=== PATIENT | male | born 1960 | race Hispanic/Latino ===

== ENCOUNTER 2018-02-25 17:46 | Inpatient (IN) | payer MEDICARE ==
[~2018-02-25] VITALS: Ht 175.3 cm; Wt 131.6 kg
[2018-02-25 18:53] LABS: BASOPHILS % 0.3 % (0.0-1.0); EOSINOPHILS # (AUTO) 0.2 (0.0-0.4); EOSINOPHILS % 1.8 % (0.0-6.0); HEMATOCRIT 40.2 % (38.2-49.6); HEMOGLOBIN 13.6 g/dL (14.0-18.0); LYMPHOCYTES # (AUTO) 2.7 (1.0-3.2); LYMPHOCYTES % 21.8 % (18.0-39.1); MEAN CORPUSCULAR HEMOGLOBIN 29.4 pg (28-32); MEAN CORPUSCULAR HGB CONC 33.8 g/dL (31-35); MONOCYTES % 8.2 % (4.4-11.3); NEUTROPHILS # (AUTO) 8.2 (2.1-6.9); NEUTROPHILS % 67.5 % (38.7-80.0); PLATELET COUNT 255 x10e3/uL (140-360); RED BLOOD COUNT 4.62 x10e6/uL (4.3-5.7); RED CELL DISTRIBUTION WIDTH 14.1 % (11.7-14.4)
[2018-02-25 19:08] LABS: CALCIUM 9.4 mg/dL (8.4-10.2); CREATININE, SERUM 1.24 mg/dL (0.72-1.25)
--- NOTE | 2018-02-25 19:30 | Diagnostic Imaging Report ---
FOOT LEFT COMPLETE - 3 views HISTORY: Pain. Evaluate for fourth metatarsal osteomyelitis COMPARISON: None available. FINDINGS: Bones: Cortical irregularity at the base of the fourth proximal phalanx with osteopenia. Questionable involvement of the fourth metatarsal head. Osseous alignment is within normal limits. Joints: Mild to moderate degenerative changes in the DLP and PIP joints. Moderate degenerative changes in the interphalangeal joint of the first digit and first MTP joint. Soft tissues: Diffuse soft tissue swelling. IMPRESSION: Cortical irregularity at the base of the fourth proximal phalanx with osteopenia, worrisome for osteomyelitis. Possible involvement of the fourth metatarsal head. Signed by: Dr. Daron Guevara M.D. on 02/25/2018 7:27 PM
[2018-02-25] MEDS ORDERED: AMLODIPINE BESYL5 MG PO (19:59)
[2018-02-25] MEDS ORDERED: HYDRALAZINE HCL25 MG PO (19:59)
[2018-02-25] MEDS ORDERED: DEXTROSE 50% SYRINGE 50 ML IV PRN ×2 (20:00)
[2018-02-25] MEDS ORDERED: ATORVASTATIN CA20 MG PO (20:00)
[2018-02-25] MEDS ORDERED: SODIUM CHLORIDE FLUSH 10 ML SYR INJ PRN (20:00)
[2018-02-25] MEDS ORDERED: ONDANSETRON HCL INJ 2 MG/ML VIAL IV PRN (20:00)
[2018-02-25] MEDS ORDERED: TERBINAFINE HC250 MG PO (20:00)
[2018-02-25] MEDS ORDERED: GABAPENTIN300 MG PO (20:02)
[2018-02-25] MEDS ORDERED: LASIX20 MG PO (20:03)
[2018-02-25] MEDS ORDERED: PROBENECID500 MG PO (20:03)
[2018-02-25] MEDS ORDERED: LISINOPRIL10 MG PO (20:04)
[2018-02-25] MEDS ORDERED: ALLOPURINOL100 MG PO (20:04)
[2018-02-25] MEDS ORDERED: TIZANIDINE HCL4 MG PO (20:05)
[2018-02-25] MEDS ORDERED: ACETAMINOPHEN 325 MG TAB PO PRN (20:15)
[2018-02-25] MEDS ORDERED: VANCOMYCIN 1GM/NS 250 ML 250 ML IV ONE (20:30)
--- NOTE | 2018-02-25 20:46 | History and Physical ---
HISTORY OF PRESENT ILLNESS: Patient is an 57-year-old male with past medical history positive for diabetes and hypertension. Came here with an infected left foot. REVIEW OF SYSTEMS: CARDIOVASCULAR: No chest pain or palpitations. RESPIRATORY: No shortness of breath. No cough. GASTROINTESTINAL: No nausea. No vomiting or diarrhea. GENITOURINARY: No frequency and no dysuria. ALLERGIES: NOT ALLERGIC TO ANY MEDICATIONS. SOCIAL HISTORY: He smokes but he does not drink alcohol. PAST MEDICAL HISTORY: Positive for diabetes, hypertension and diabetic neuropathy. PHYSICAL EXAMINATION: HEART: Regular rhythm. No murmur. No extra sounds. LUNGS: Clear bilaterally. ABDOMEN: Soft. EXTREMITIES: Show the open wound on the plantar aspect of the left foot with yellowish coloration. LABORATORY DATA: On the blood work we have a BMP with a sodium 138, potassium 4.0, chloride 102. CO2 28. BUN 21, creatinine 1.24, glucose 86. Calcium 9.4. On the CBC white blood count 12.18, hemoglobin 13.6, hematocrit 40.2, platelet count 255,000. We also have an x-ray of the left foot which showed cortical irregularly with elevation of the 4th proximal phalanx with osteopenia osteomyelitis possibly involving the 4th metatarsal head. FINAL IMPRESSION: 1. Left foot wound infection with osteomyelitis. 2. Diabetes mellitus type 2. 3. History of hypertension. 4. Obesity. PLAN OF TREATMENT: Going to continue Zosyn 3.375 grams IV piggyback once a day. Vancomycin 1 gram IV piggyback twice a day. Consult Dr. Lopez for infectious disease and Dr. Garcia for napkin band wrapper. Continue the home medications. Continue diabetic diet. Continue monitoring blood sugar a.c. and nightly. Job#: [id number]
[2018-02-25] MEDS ORDERED: ATORVASTATIN 20 MG TAB PO SCH (21:00)
[2018-02-25] MEDS ORDERED: INSULIN REGULAR, HUMAN 100 UNIT/1 ML 3ML VIAL SQ SCH (21:00)
[2018-02-25] MEDS: INSULIN REGULAR, HUMAN 100 UNIT/1 ML 3ML VIAL SQ SCH (21:57)
[2018-02-25] MEDS: INSULIN DETEMIR 100 UNIT/ML PEN SQ SCH (21:58)
[2018-02-25] MEDS: HYDRALAZINE HCL 25 MG TAB PO SCH (21:58)
[2018-02-25] MEDS: ATORVASTATIN 40 MG TAB PO SCH (21:59)
[2018-02-25] MEDS: PROBENECID 500 MG TABLET PO SCH (22:16)
[2018-02-25] MEDS: GABAPENTIN 300 MG CAP PO SCH (22:17)
[2018-02-25] MEDS: PIPER-TAZ 3.375 GM 50 ML IV SCH (22:18)
[2018-02-25 22:25] VITALS: BP 186/99
[2018-02-25] MEDS: MORPHINE SULFATE 2 MG/ML SYR IV PRN (23:12)
[2018-02-26] VITALS (9 sets, daily range): BP systolic 127–187; BP diastolic 67–96
[2018-02-26] MEDS: LABETALOL HCL 5 MG/ML 20ML VIAL IV PRN (04:42)
[2018-02-26] MEDS: GABAPENTIN 300 MG CAP PO SCH ×3 (05:31→21:00)
[2018-02-26] MEDS: PIPER-TAZ 3.375 GM 50 ML IV SCH ×3 (05:31→21:00)
[2018-02-26] MEDS: PROBENECID 500 MG TABLET PO SCH ×3 (05:31→21:00)
[2018-02-26 06:08] LABS: BASOPHILS # (AUTO) 0.1 (0.0-0.1); BASOPHILS % 0.5 % (0.0-1.0); EOSINOPHILS # (AUTO) 0.2 (0.0-0.4); EOSINOPHILS % 2.2 % (0.0-6.0); HEMATOCRIT 37.7 % (38.2-49.6); HEMOGLOBIN 12.3 g/dL (14.0-18.0); LYMPHOCYTES # (AUTO) 2.8 (1.0-3.2); LYMPHOCYTES % 27.1 % (18.0-39.1); MEAN CORPUSCULAR HEMOGLOBIN 29.4 pg (28-32); MEAN CORPUSCULAR HGB CONC 32.6 g/dL (31-35); MONOCYTES # (AUTO) 0.8 (0.2-0.8); MONOCYTES % 7.9 % (4.4-11.3); NEUTROPHILS # (AUTO) 6.4 (2.1-6.9); NEUTROPHILS % 61.9 % (38.7-80.0); PLATELET COUNT 242 x10e3/uL (140-360); RED BLOOD COUNT 4.19 x10e6/uL (4.3-5.7); RED CELL DISTRIBUTION WIDTH 14.2 % (11.7-14.4)
[2018-02-26 06:32] LABS: ALBUMIN 2.6 g/dL (3.5-5.0); ALBUMIN/GLOBULIN RATIO 0.6 (0.8-2.0); ANION GAP 11.8 mmol/L (8-16); CALCIUM 8.9 mg/dL (8.4-10.2); CREATININE, SERUM 1.29 mg/dL (0.72-1.25); POTASSIUM 3.8 mmol/L (3.5-5.1)
[2018-02-26] MEDS: INSULIN LISPRO 100 UNIT/1 ML 3ML VIAL SQ SCH ×3 (07:30→18:01)
[2018-02-26] MEDS: INSULIN REGULAR, HUMAN 100 UNIT/1 ML 3ML VIAL SQ SCH ×4 (07:30→21:10)
--- NOTE | 2018-02-26 08:07 | History and Physical ---
PRIMARY CARE PHYSICIAN: Dr. Tse CHIEF COMPLAINT: Left foot nonhealing ulcer, failed outpatient antibiotic therapy. HISTORY OF PRESENT ILLNESS: This is a 57-year-old man with a history of diabetes mellitus, type 2, now developing left foot sole ulcer since August when he had trauma to that foot, which has been nonhealing. He has been receiving antibiotics, but the ulcer persists. Therefore, he came to the hospital for management. He admits to some leg edema. Denies any chest pain. PAST MEDICAL HISTORY: Diabetes mellitus, type 2, stroke in 2007 without residual weakness, myocardial infarction without stent, appendicitis, status post appendectomy. PAST SURGICAL HISTORY: Appendectomy, L1-L2 back surgery. ALLERGIES: PER ELECTRONIC MEDICAL RECORD. FAMILY HISTORY/SOCIAL HISTORY: Patient is . He has 3 children. No alcohol or illicits. He smokes occasionally intermittently. MEDICATIONS: Per electronic medical record. REVIEW OF SYSTEMS: Denies any dizziness, chest pain, shortness of breath, fever, chills, nausea, vomiting, diarrhea, blurred vision. Denies any back pain. PHYSICAL EXAMINATION VITAL SIGNS: Have been reviewed. GENERAL: A tired-appearing man resting in bed. HEENT: Anicteric. Pupils respond to light. No oral lesions. CARDIOVASCULAR: Normal S1 and S2. LUNGS: Good breath sounds. ABDOMEN: Soft, nontender and nondistended. EXTREMITIES: He has 1+ edema bilateral legs. He has an ulcer, small to 0.5-inch in diameter ulcer on the foot sole of the left foot closer to the 5th digit on the foot sole plantar surface. No bleeding. It is a shallow ulcer. No swelling or erythema. Mild induration surrounding. No fluctuance. SKIN: Dry. PSYCHIATRIC: Flat affect. NEUROLOGIC: Alert and oriented times 3. Moving all extremities. LABS: Reviewed. MEDICATIONS: Reviewed. ASSESSMENT: This is a 57-year-old man with: 1. Left foot diabetic ulcer. 2. Acute kidney injury. 3. Diabetes mellitus, type 2. 4. Morbid obesity. 5. Hypertension. 6. Normocytic anemia. 7. Hyperlipidemia. 8. Gout. 9. Diabetic neuropathy. 10. Peripheral edema. PLAN 1. Continue IV Zosyn. Discontinue vancomycin due to acute kidney injury. Start IV clindamycin. 2. Obtain hemoglobin A1c and lipid panel. 3. Obtain BNP in the setting of peripheral edema. 4. The patient is already on diuretics with Lasix 20 mg daily. Will continue Lasix and recheck his renal function later today. 5. Antihypertensive medications. 6. Continue statin. 7. Offloading needed. 8. X-ray of the foot for possible osteomyelitis. Will obtain an MRI to further evaluate the chronic nonhealing ulcer that has failed outpatient antibiotic therapy. 9. Use heparin and Pepcid. 10. Disposition. Follow up results. Consult duplex trimmer for caloric restriction. Await diabetic diet in a patient who is morbidly obese. Job#: [id number] RI
[2018-02-26] MEDS ORDERED: LISINOPRIL 10 MG TAB PO SCH (09:00)
[2018-02-26] MEDS: HYDRALAZINE HCL 25 MG TAB PO SCH ×3 (09:50→21:00)
[2018-02-26] MEDS: LISINOPRIL 20 MG TAB PO SCH (09:50)
[2018-02-26] MEDS: TERBINAFINE 250 MG TAB PO SCH (09:50)
[2018-02-26] MEDS: ALLOPURINOL 100 MG TAB PO SCH (09:50)
[2018-02-26] MEDS: FUROSEMIDE 20 MG TAB PO SCH (09:50)
[2018-02-26] MEDS: HEPARIN SOD (PORCINE) 5,000 UNIT/ML VIAL SC SCH ×2 (09:50→21:10)
[2018-02-26] MEDS: TIZANIDINE HCL 4 MG TAB PO SCH ×2 (09:50→17:36)
[2018-02-26] MEDS: AMLODIPINE BESYLATE 5 MG TAB PO SCH (09:50)
--- NOTE | 2018-02-26 10:08 | Consultation ---
DATE OF CONSULTATION: February 26, 2018 REASON FOR CONSULTATION: Ulceration to the left foot with the patient being diabetic. HISTORY OF PRESENT ILLNESS: This is a pleasant, 57-year-old male with a history of insulin-dependent diabetes, hypertension, hypercholesterolemia. He has had an ulcer for more than 2 months to the left lower extremity. He started having some swelling to the left lower extremity. He is denying history of fever, chills, nausea or vomiting. He is currently on IV Zosyn and vancomycin. ALLERGIES: PATIENT DENIES. CURRENT MEDICATIONS: Noted on the list in the chart including IV medications/Zosyn and vancomycin. PAST SURGICAL HISTORY: Remarkable for appendectomy and 2 back surgeries. SOCIAL HISTORY: Smokes a pack every month for 20+ years. Does not do any recreational drug use or alcohol drinking. He is and has 3 kids. FAMILY HISTORY: Remarkable for diabetes. ALLERGIES: PATIENT DENIES. VITALS: Afebrile, pulse rate 64, respirations 20, blood pressure 186/90, O2 saturation 94%. LABS: Noted. Has white blood cell count dropping from 12.1 to 10.33, hemoglobin 12.3, hematocrit 37.7 with platelet count of 242. PODIATRIC PHYSICAL EXAMINATION VASCULAR: Pedal pulses, both the dorsalis pedis and posterior tibial arteries, are palpable. CFT to all toes less than 3 seconds. NEUROLOGICAL: Some loss of protective sensation when utilizing [place]-Shalini 5.07 monofilament wire. MUSCULOSKELETAL: Muscle mass is asymmetrical. Some swelling noted to the left lower extremity compared to the right. DERMATOLOGIC: Grade 2, possibly 3, ulceration on plantar aspect, left foot, measuring 2 to 2.5 cm in diameter, some necrosis noted. No bone or tendon exposed. X RAYS: Reviewed. No gas in the tissue or osteomyelitic changes at this time. ASSESSMENT: Grade 2/3 ulceration, left foot. Diabetic neuropathy with cellulitis. PLAN: Will continue IV antibiotics. Will start Santyl followed by dilute wet-to-dry Betadine. Ulceration will be debrided sometime next week and we will see how he responds to Santyl and conservative care. Job#: [id number]
[2018-02-26] MEDS: MORPHINE SULFATE 2 MG/ML SYR IV PRN (11:00)
[2018-02-26] MEDS ORDERED: CLINDAMYCIN 300MG 50 ML IV SCH (14:00)
[2018-02-26] MEDS ORDERED: SODIUM CHLORIDE 0.9% 250ML 250 ML ONE (14:27)
[2018-02-26 17:13] LABS: CALCIUM 8.6 mg/dL (8.4-10.2); CREATININE, SERUM 1.44 mg/dL (0.72-1.25)
[2018-02-26] MEDS: ENOXAPARIN SOD INJ 40 MG/0.4 ML SYR SC SCH (17:36)
[2018-02-26] MEDS: ATORVASTATIN 40 MG TAB PO SCH (21:00)
[2018-02-26] MEDS ORDERED: VANCOMYCIN 1GM/NS 250 ML 250 ML IV SCH (21:00)
[2018-02-26] MEDS: INSULIN DETEMIR 100 UNIT/ML PEN SQ SCH (21:10)
[2018-02-27 00:45] VITALS: BP 159/83
[2018-02-27 05:40] VITALS: BP 122/99
[2018-02-27] MEDS: PROBENECID 500 MG TABLET PO SCH ×3 (06:13→20:24)
[2018-02-27] MEDS: GABAPENTIN 300 MG CAP PO SCH ×3 (06:13→20:24)
[2018-02-27] MEDS: PIPER-TAZ 3.375 GM 50 ML IV SCH ×3 (06:13→23:05)
[2018-02-27] MEDS: LISINOPRIL 20 MG TAB PO SCH (07:40)
[2018-02-27] MEDS: FUROSEMIDE 20 MG TAB PO SCH (07:40)
[2018-02-27 08:00] VITALS: BP 145/76
[2018-02-27] MEDS: TIZANIDINE HCL 4 MG TAB PO SCH ×2 (08:03→17:10)
[2018-02-27] MEDS: AMLODIPINE BESYLATE 5 MG TAB PO SCH (08:03)
[2018-02-27] MEDS: HYDRALAZINE HCL 25 MG TAB PO SCH ×3 (08:03→20:23)
[2018-02-27] MEDS: ALLOPURINOL 100 MG TAB PO SCH (08:03)
[2018-02-27] MEDS: TERBINAFINE 250 MG TAB PO SCH (08:03)
[2018-02-27 08:35] LABS: ANION GAP 12.3 mmol/L (8-16); CALCIUM 8.8 mg/dL (8.4-10.2); CREATININE, SERUM 1.43 mg/dL (0.72-1.25); POTASSIUM 4.3 mmol/L (3.5-5.1)
[2018-02-27] MEDS: INSULIN LISPRO 100 UNIT/1 ML 3ML VIAL SQ SCH ×3 (08:36→17:11)
[2018-02-27] MEDS: COLLAGENASE 5 GM TUBE TOP SCH (08:37)
[2018-02-27] MEDS: HEPARIN SOD (PORCINE) 5,000 UNIT/ML VIAL SC SCH ×2 (08:37→21:26)
[2018-02-27] MEDS: INSULIN REGULAR, HUMAN 100 UNIT/1 ML 3ML VIAL SQ SCH ×4 (08:37→21:27)
--- NOTE | 2018-02-27 10:11 | Progress Note ---
DATE: February 27, 2018 TIME OF SERVICE: 9 a.m. SUBJECTIVE: Overnight no events. REVIEW OF SYSTEMS: Denies any dizziness or chest pain. PHYSICAL EXAMINATION VITAL SIGNS: Reviewed. GENERAL APPEARANCE: A tired-appearing man resting in the bed. HEENT: Anicteric. CARDIOVASCULAR: Normal S1 and S2. No murmurs. LUNGS: Moderate breath sounds, ABDOMEN: Soft and nontender. Nondistended. EXTREMITIES: He has 1+ edema of the bilateral legs. He has ulcer on the plantar surface of the left foot. SKIN: Dry. PSYCHIATRIC: Flat affect. LABS: Reviewed. MEDICATIONS: Reviewed. ASSESSMENT: A 57-year-old man. 1. Left diabetic foot ulcer. 2. Acute kidney injury. 3. Diabetes mellitus type 2. 4. Morbid obesity. 5. Hypertension. 6. Hyperlipidemia. 7. Gout. 8. Diabetic neuropathy. 9. Peripheral edema. 10. Acute kidney injury. PLAN: 1. Continue IV antibiotics. 2. Follow up MRI of the foot. 3. Sed rate elevated at 54. 4. Leukocytosis, resolving. 5. Discontinue Lasix and discontinue KIRSTEN inhibitor due to renal injury. Will recheck basic metabolic panel now. 6. Hemoglobin A1c is 8.4 and LDL 82 and triglycerides 185. 7. Monitor closely and follow up labs later today. Job#: [id number]
--- NOTE | 2018-02-27 10:42 | Consultation ---
DATE OF CONSULTATION: February 26, 2018 INFECTIOUS DISEASE CONSULTATION ATTENDING PHYSICIAN: Dr. Ye Goldsmith. REASON FOR CONSULTATION: Osteomyelitis. Thank you, Dr. Goldsmith, for asking me to see this patient. HISTORY: The patient is a 57-year-old man referred for osteomyelitis. He presented to the emergency department yesterday with swelling and pain of the left lower extremity and a nonhealing ulcer of the left foot with malodorous discharge. He denies a fever, chills, nausea and vomiting. The patient's problem actually started about 6 months ago with a fall. Three days after the fall, he developed swelling, redness and pain on the left lower extremity. He required hospitalization at [facility] for 8 days and was treated with antibiotics. Two to three months ago, a pustule appeared in the plantar aspect of the left foot, which later ruptured to discharge pus. The patient managed himself at home without improvement and was concerned about the malodorous discharge. In the emergency department, the patient had a left foot x-ray which showed cortical irregularity of the base of the 4th proximal phalanx with involvement of the 4th metatarsal head. PAST MEDICAL HISTORY: Diabetes mellitus type 2 with peripheral neuropathy, hypertension, hyperlipidemia, myocardial infarction status post stenting. PAST SURGICAL HISTORY: Appendectomy and L1-L2 fusion of the fracture. ALLERGIES: NO KNOWN DRUG ALLERGIES. MEDICATIONS: The current antimicrobials are Zosyn 3.375 g IV piggyback q.8 h., clindamycin 300 mg IV piggyback q.8 h., terbinafine 250 mg p.o. daily. The patient received vancomycin 1 g IV piggyback once in the emergency room. IMMUNIZATION: He received tetanus vaccine about 5 years ago. Also, he received a pneumococcal vaccination prior to admission. FAMILY HISTORY: Noncontributory. SOCIAL HISTORY: He smokes 1 pack of cigarettes a month. He denies alcohol use. PHYSICAL EXAMINATION GENERAL: No acute distress. VITAL SIGNS: T-max 98.8, pulse 68, respiratory rate 16, blood pressure 161/90, weight 290 pounds. HEENT: Normocephalic. There is no icterus or injection of conjunctivae. There is no ear or nasal discharge. Moist oral mucosa. No pharyngeal erythema or exudate. NECK: Supple. No lymphadenopathy or meningismus. LUNGS: Clear to auscultation bilaterally. HEART: Normal S1 and S2. ABDOMEN: Soft and nontender. EXTREMITIES: There is plus edema of the lower extremities bilaterally. There is an ulcer on the plantar aspect of the lateral left foot with malodorous discharge. The dorsalis pedis and posterior tibial pulses are difficult to palpate in both feet. SKIN: As per extremities. ROAD CLEANER: Awake, alert and oriented to person, place and time. There is decreased sensation on monofilament examination of the feet. Nonfocal. LABORATORY AND DIAGNOSTICS: WBC 10,330, down from 12,180. Hemoglobin 12.3. Platelet 242,000. Neutrophil 61.9, lymph 27.1, mono 7.9, eosinophil 2.2, basophil 0.5. Erythrocyte sedimentation rate 54. BUN 21, creatinine 1.44, blood glucose 219. Wound culture is pending. IMPRESSION 1. Infected diabetic foot ulcer present on admission. 2. ?Osteomyelitis of the left foot metatarsal present on admission. 3. ?Peripheral arterial disease. 4. Diabetes mellitus type 2 with peripheral neuropathy. PLAN 1. Check MRI of the left foot, left lower extremity arterial Doppler ultrasound, and C-reactive protein. 2. Consult podiatry service for wound debridement. Patient will need a deep wound specimen as well as a possible bone biopsy for microbiologic diagnoses and histology. 3. Stop clindamycin. 4. Smoking cessation counseling has been provided to the patient. Job#: [id number] FAYE
[2018-02-27 12:00] VITALS: BP 134/70
[2018-02-27 16:00] VITALS: BP 145/76
[2018-02-27] MEDS: ENOXAPARIN SOD INJ 40 MG/0.4 ML SYR SC SCH (17:10)
--- NOTE | 2018-02-27 17:34 | Cardiology Report ---
DATE OF STUDY: ATTENDING PHYSICIAN: Amos Garcia MD DOPPLER SCAN OF THE LEFT LEG ARTERIES The left leg arteries were interrogated using the duplex scanning method. Segmental pressure measurements were not carried out. The waveforms all biphasic and triphasic. CONCLUSION 1. No high-grade stenosis based on waveform study of the left leg with the waveforms all biphasic and triphasic. 2. The right leg was not studied. 3. No segmental pressure measurements submitted for interpretation. Job#: [id number] AKU cc:AMOS GARCIA MD
[2018-02-27] MEDS: VANCOMYCIN HCL 1.5 GM in SODIUM CHLORIDE 0.9% 250ML 300 ML IV SCH (20:22)
[2018-02-27 20:23] VITALS: BP 141/81
[2018-02-27] MEDS: ATORVASTATIN 40 MG TAB PO SCH (20:23)
[2018-02-27] MEDS: INSULIN DETEMIR 100 UNIT/ML PEN SQ SCH (21:27)
--- NOTE | 2018-02-27 21:44 | Progress Note ---
DATE: February 27, 2018 SUBJECTIVE: Patient seen at bedside, still having some discomfort to the left lower extremity. OBJECTIVE VITAL SIGNS: Afebrile. Pulse rate 50. Respirations 20. Blood pressure 141/81. O2 saturation at 93%. EXTREMITIES: Ulceration to the plantar aspect of left foot down to subcutaneous tissue, possible muscle, still some positive edema and cellulitis of the left lower extremity with positive foul smell. LABS: Noted. White blood cell count 10.3, hemoglobin 12.3, with a platelet count of 242,000. ASSESSMENT: Grade-3 possibly grade-4 ulcer cellulitis with diabetic neuropathy. PLAN: Excisional debridement will be performed tomorrow. Will continue IV antibiotics. Continue local wound care with Santyl followed by dilute wet-to-dry. Will follow up tomorrow for debridement at bedside. Job#: [id number] CQ
[2018-02-28] VITALS (7 sets, daily range): BP systolic 135–191; BP diastolic 74–95
[2018-02-28] MEDS: LABETALOL HCL 5 MG/ML 20ML VIAL IV PRN (05:01)
[2018-02-28] MEDS: GABAPENTIN 300 MG CAP PO SCH ×3 (05:01→20:45)
[2018-02-28] MEDS: PROBENECID 500 MG TABLET PO SCH ×3 (05:01→20:45)
[2018-02-28] MEDS: PIPER-TAZ 3.375 GM 50 ML IV SCH ×3 (05:40→21:40)
[2018-02-28] MEDS: INSULIN REGULAR, HUMAN 100 UNIT/1 ML 3ML VIAL SQ SCH ×4 (07:30→21:10)
--- NOTE | 2018-02-28 08:08 | Diagnostic Imaging Report ---
TECHNIQUE: Magnetic resonance imaging of the LEFT foot was performed WITHOUT injected contrast. HISTORY: Left foot pain COMPARISON: None available. DISCUSSION: Soft tissue ulceration plantar to the fourth metatarsal head with soft tissue ulceration and adjacent phlegmon. Bone marrow signal normal. No edema or T1 or replacement to reflect osteomyelitis. Generalized soft tissues swelling and edema of the foot. Third intermetatarsal space bursitis. Atrophy of the foot musculature. First MTP degenerative arthrosis. IMPRESSION: Plantar foot ulceration fourth metatarsal head. No osteomyelitis. Signed by: Dr. Ran Tsang M.D. on 03/01/2018 8:08 AM
[2018-02-28] MEDS: COLLAGENASE 5 GM TUBE TOP SCH (08:27)
[2018-02-28] MEDS: HEPARIN SOD (PORCINE) 5,000 UNIT/ML VIAL SC SCH ×2 (08:28→21:09)
[2018-02-28] MEDS: TIZANIDINE HCL 4 MG TAB PO SCH ×2 (08:44→16:41)
[2018-02-28] MEDS: ALLOPURINOL 100 MG TAB PO SCH (08:44)
[2018-02-28] MEDS: AMLODIPINE BESYLATE 5 MG TAB PO SCH (08:44)
[2018-02-28] MEDS: TERBINAFINE 250 MG TAB PO SCH (08:44)
[2018-02-28] MEDS: HYDRALAZINE HCL 25 MG TAB PO SCH ×3 (08:44→20:45)
[2018-02-28] MEDS: INSULIN LISPRO 100 UNIT/1 ML 3ML VIAL SQ SCH ×3 (08:46→16:53)
--- NOTE | 2018-02-28 10:55 | Progress Note ---
DATE: February 28, 2018 SUBJECTIVE: Patient seen at bedside. Having some swelling to the left lower extremity. Denying any history of fever, chills, nausea, or vomiting. OBJECTIVE: VITAL SIGNS: Afebrile. Pulse rate 73, respiration 20, blood pressure 179/95, O2 saturation 93%. EXTREMITIES: Has an ulceration down to muscle, no tendon or bone exposed, to the plantar aspect of the left foot measuring 1.5 to 2 cm in diameter, granular fibrotic base with some necrosis and foul smell present. Periwound cellulitis present. Edema, left lower extremity when compared to the right with pedal pulses palpable. LABS: Noted. Has a blood glucose of 207. ASSESSMENT: Grade 3 ulceration, diabetic neuropathy with cellulitis with no evidence of any osteomyelitis with the magnetic resonance imaging. PLAN: Sharp excisional debridement of the ulcer was carried through skin, subcutaneous tissue, dermis down to muscle. Devitalized tissue sharply excised until good bleeding viable tissue was achieved. Cultures were taken for aerobic and anaerobic growth. Will continue IV vancomycin and Zosyn. Continue local wound care. Continue offloading with Santyl, followed by diluted wet-to-dry Betadine. Will continue to follow. Job#: [id number]
[2018-02-28] MEDS: ENOXAPARIN SOD INJ 40 MG/0.4 ML SYR SC SCH (16:42)
[2018-02-28] MEDS: VANCOMYCIN HCL 1.5 GM in SODIUM CHLORIDE 0.9% 250ML 300 ML IV SCH (20:15)
[2018-02-28] MEDS: ATORVASTATIN 40 MG TAB PO SCH (20:45)
[2018-02-28] MEDS: INSULIN DETEMIR 100 UNIT/ML PEN SQ SCH (21:10)
--- NOTE | 2018-02-28 21:53 | Progress Note ---
DATE: February 28, 2018 TIME: 2039 PROGRESS NOTE Overnight, no acute events. REVIEW OF SYSTEMS: Patient denies any nausea, vomiting, diarrhea. No chest pain or shortness of breath reported. Patient denies right lower extremity pain. Patient does report left lower extremity pain extending from hip distal. PHYSICAL EXAMINATION VITAL SIGNS: T 97.9, P 49, respirations 20, BP 135/74, SpO2 96% on room air. GENERAL APPEARANCE: This is a tired-appearing man, resting supine in bed. HEAD, EYES, EARS, NOSE, THROAT: Normocephalic. Oral mucosa is moist and intact. PERRLA. CV: S1 and S2 auscultated without clicks, murmurs or rubs. Heart sounds distant. LUNGS: Bilateral breath sounds clear to auscultation with moderate excursion. ABDOMEN: Soft, nontender, not distended. No pain to palpation. EXTREMITIES: A +1 edema bilaterally to lower extremities. Dressing to left lower extremity plantar surface intact with iodine colored drainage noted. SKIN: Dry. PSYCHIATRIC: Flat affect. LABS: Reviewed. MEDICATIONS 1. Lispro 5 units a.c. 2. Sliding scale regular insulin. 3. Lovenox 40 daily. 4. Zanaflex 4 mg p.o. b.i.d. 5. Probenecid 500 mg p.o. q.8 h. 6. Hydralazine 50 mg p.o. t.i.d. 7. Gabapentin 300 mg q.8 h. 8. Zosyn q.8 h IV. 9. Terbinafine 250 mg p.o. daily. 10. Amlodipine 5 mg p.o. daily. 11. Allopurinol 100 mg p.o. daily. 12. Labetalol 5 mg q.4 h p.r.n. 13. Detemir insulin 10 units nightly subcutaneous. 14. Lipitor 40 mg p.o. nightly. 15. IV vancomycin q.24 h. 16. Topical collagenase to wound. 17. Heparin 500 units subcutaneous q.12 h. 18. P.r.n. Tylenol. 19. P.r.n. D50. 20. P.r.n. Zofran. ASSESSMENT AND PLAN: This is a 49-year-old man with 1. Left diabetic foot ulcer. Patient underwent sharp debridement this day. Magnetic resonance imaging without signs of acute osteomyelitis. However, diffuse inflammation noted on report. 2. Acute kidney injury. Will follow up basic metabolic panel in a.m. due to ongoing IV antibiotics. 3. Diabetes mellitus, type 2, insulin sliding scale. 4. Morbid obesity. Counseled outpatient intervention will be required. 5. Hypertension. Patient on multiple medications for hypertension. However, one of these medications are beta-blockers. Patient reported significant anxiety over consideration of current condition early this a.m. Beta-blockers administered. Patient, at this time, with asymptomatic bradycardia. Will apply telemetry and change p.r.n. hypertensive medication. 6. Hyperlipidemia. Low-density lipoprotein is 82 and triglyceride 185. Continue statin. 7. Gout, monitor. 8. Diabetic neuropathy. 9. Peripheral edema. 10. Prophylaxis. As above. 11. Disposition. Follow up a.m. labs. Continue IV antibiotics. Dictated By: Antonio Collazo NP Job#: [id number] CQ
[2018-03-01] VITALS (10 sets, daily range): BP systolic 142–201; BP diastolic 81–110
[2018-03-01] MEDS: CLONIDINE HCL 0.1 MG TAB PO PRN ×3 (04:40→16:16)
[2018-03-01] MEDS: LORAZEPAM INJ 2 MG/ML VIAL IV PRN ×2 (04:40→15:13)
[2018-03-01] MEDS: PIPER-TAZ 3.375 GM 50 ML IV SCH ×2 (04:54→14:28)
[2018-03-01] MEDS: GABAPENTIN 300 MG CAP PO SCH ×3 (04:54→21:35)
[2018-03-01] MEDS: PROBENECID 500 MG TABLET PO SCH ×3 (04:54→21:35)
[2018-03-01 06:26] LABS: ANION GAP 12.9 mmol/L (8-16); CREATININE, SERUM 1.45 mg/dL (0.72-1.25); POTASSIUM 3.9 mmol/L (3.5-5.1)
[2018-03-01] MEDS: INSULIN LISPRO 100 UNIT/1 ML 3ML VIAL SQ SCH ×3 (07:30→16:30)
[2018-03-01] MEDS: INSULIN REGULAR, HUMAN 100 UNIT/1 ML 3ML VIAL SQ SCH ×4 (07:30→21:31)
[2018-03-01] MEDS: ALLOPURINOL 100 MG TAB PO SCH (08:50)
[2018-03-01] MEDS: TERBINAFINE 250 MG TAB PO SCH (08:50)
[2018-03-01] MEDS: AMLODIPINE BESYLATE 5 MG TAB PO SCH (08:50)
[2018-03-01] MEDS: TIZANIDINE HCL 4 MG TAB PO SCH ×2 (08:50→16:57)
[2018-03-01] MEDS: HYDRALAZINE HCL 25 MG TAB PO SCH ×2 (08:50→14:29)
[2018-03-01] MEDS: COLLAGENASE 5 GM TUBE TOP SCH (08:51)
[2018-03-01] MEDS: HEPARIN SOD (PORCINE) 5,000 UNIT/ML VIAL SC SCH ×2 (08:52→21:31)
--- NOTE | 2018-03-01 09:14 | Progress Note ---
DATE: March 01, 2018 SUBJECTIVE: Patient is seen at bedside. Decreased pain to the left lower extremity. Relates decreased swelling to the left lower extremity. Denies any history of fever, chills, nausea, or vomiting. OBJECTIVE VITALS: Afebrile, pulse rate 49, respirations 20, blood pressure 201/98, O2 saturation 91. EXTREMITIES: Ulcerations to the left lower extremity looking better. Granular fibrotic base noted down to subcutaneous tissue and muscle. No tendon or bone exposed. Less than 2 cm in diameter. Still some positive cellulitis and edema of the left lower extremity compared to the right. Pedal pulses are palpable. ASSESSMENT 1. Grade 3 ulcer, left foot. 2. Cellulitis. 3. Diabetic neuropathy with edema. PLAN: Will continue IV antibiotics such as vancomycin and Zosyn. Will continue Santyl followed by dilute wet-to-dry Betadine. Continue offloading. Will continue to follow. Job#: [id number] TRISH
[2018-03-01] MEDS: METRONIDAZOLE 500MG/NS 100ML 100 ML IV SCH (18:03)
[2018-03-01] MEDS: CEFAZOLIN SOD 1 GM VIAL IV SCH (18:03)
[2018-03-01] MEDS: INSULIN DETEMIR 100 UNIT/ML PEN SQ SCH (21:31)
[2018-03-01] MEDS: ATORVASTATIN 40 MG TAB PO SCH (21:35)
[2018-03-01] MEDS ORDERED: CEFAZOLIN SOD 1 GM/NS 50ML 50 ML IV SCH (22:00)
[2018-03-02] MEDS: HYDRALAZINE HCL 25 MG TAB PO SCH ×2 (00:14→08:10)
[2018-03-02 01:07] VITALS: BP 164/93
[2018-03-02] MEDS: CEFAZOLIN SOD 1 GM VIAL IV SCH ×2 (02:38→10:30)
[2018-03-02] MEDS: METRONIDAZOLE 500MG/NS 100ML 100 ML IV SCH ×2 (02:38→10:30)
[2018-03-02 05:09] VITALS: BP 168/93
[2018-03-02] MEDS: GABAPENTIN 300 MG CAP PO SCH (05:39)
[2018-03-02] MEDS: PROBENECID 500 MG TABLET PO SCH (05:39)
[2018-03-02 05:55] VITALS: BP 168/93
[2018-03-02] MEDS: INSULIN REGULAR, HUMAN 100 UNIT/1 ML 3ML VIAL SQ SCH ×2 (07:18→11:30)
[2018-03-02] MEDS: INSULIN LISPRO 100 UNIT/1 ML 3ML VIAL SQ SCH ×2 (07:30→11:30)
[2018-03-02 08:00] VITALS: BP 157/85
[2018-03-02] MEDS: TIZANIDINE HCL 4 MG TAB PO SCH (08:10)
[2018-03-02] MEDS: ALLOPURINOL 100 MG TAB PO SCH (08:10)
[2018-03-02] MEDS: AMLODIPINE BESYLATE 5 MG TAB PO SCH (08:10)
[2018-03-02] MEDS: COLLAGENASE 5 GM TUBE TOP SCH (08:10)
[2018-03-02] MEDS: HEPARIN SOD (PORCINE) 5,000 UNIT/ML VIAL SC SCH (08:17)
[2018-03-02] MEDS: TERBINAFINE 250 MG TAB PO SCH (08:24)
--- NOTE | 2018-03-02 08:52 | Progress Note ---
DATE: March 02, 2018 SUBJECTIVE: Patient seen at bedside, doing better, denying any history of fever, chills, nausea or vomiting. Still complaining of some swelling and redness to the left foot and leg. OBJECTIVE: Vitals: Afebrile. Pulse rate 57, respirations 18, blood pressure 157/85, O2 saturation 98%. Ulceration to the left lower extremity is approximately 1.5 to 2 cm in diameter. Granular fibrotic base. No tendon or bone exposed, down to subcutaneous tissue and muscle. Periwound cellulitis present. Edema left lower extremity compared to the right. Pedal pulses are palpable. ASSESSMENT: Grade 2/3 ulceration, left foot. Diabetic neuropathy with cellulitis and edema. PLAN: Will continue IV antibiotics. Continue local wound care. Continue offloading. Will continue to follow. Job#: [id number]
[2018-03-02 12:00] VITALS: BP 142/83
[2018-03-02 12:38] VITALS: BP 157/85
--- NOTE | 2018-03-03 07:50 | Progress Note ---
DATE: March 01, 2018 TIME: 7 a.m. OVERNIGHT: No events. REVIEW OF SYSTEMS: Denies any dizziness. VITAL SIGNS: Reviewed. PHYSICAL EXAMINATION GENERAL: A tired-appearing man, resting in bed. HEENT: Anicteric. CARDIOVASCULAR: Normal S1 and S2. LUNGS: Moderate breath sounds. ABDOMEN: Soft, nontender, not distended. EXTREMITIES: Has 1+ trace edema of the legs. He has an ulcer on the left foot. SKIN: Dry. PSYCHIATRIC: Flat affect. LABS: Reviewed. MEDICATIONS: Reviewed. ASSESSMENT: This is a 57-year-old man. 1. Left diabetic foot ulcer. 2. Acute kidney injury. 3. Diabetes mellitus, type 2. 4. Morbid obesity. 5. Hypertension. 6. Hyperlipidemia. 7. Gout. 8. Diabetic neuropathy. 9. Peripheral edema. PLAN 1. Continue IV antibiotics. MRI negative. 2. Continue diuretics. 3. Hemoglobin A1c 8.4, LDL 82. 4. Discharge planning. Job#: [id number]
--- NOTE | 2018-03-03 07:50 | Discharge Summary ---
PRINCIPAL DIAGNOSES 1. Left diabetic foot ulcer. 2. Acute kidney injury. 3. Diabetes mellitus, type 2. 4. Morbid obesity. 5. Hypertension. 6. Hyperlipidemia. 7. Gout. 8. Diabetic neuropathy. 9. Peripheral edema. SECONDARY DIAGNOSIS: Diabetes mellitus, type 2. CHIEF COMPLAINT: Left foot ulcer. HISTORY OF PRESENT ILLNESS: A 57-year-old man with left foot ulcer. Refer to the H and P for further details. HOSPITAL COURSE: The patient was found to have left diabetic foot ulcer. MRI was negative for osteomyelitis. Treated with IV antibiotics and local wound care. He received diabetes management. Hemoglobin A1c 8.4, LDL 82, and triglycerides 185. The patient received diuretics for edema. He did well and transitioned to skilled facility for continued IV antibiotics. DISCHARGE MEDICATIONS: Per electronic medical record. FOLLOWUP: Primary care doctor in 1 week. DISCHARGE LOCATION: Skilled facility. AMOS GARCIA MD Job#: [id number] [place]
== END 2018-03-02 13:54 | DRG 623 ==
LOC: ER 17:46 → ERHOLD 19:50 → MED/SURG2 21:30
PROVIDERS: ADMIT Internal Medicine; ATTEND Internal Medicine
PROC: 0JBR0ZZ Excision of Left Foot Subcutaneous Tissue and Fascia, Open Approach (ICD-10-PCS; principal; 2018-02-28)
DX: E11.621 Type 2 diabetes mellitus with foot ulcer (principal); Z68.41 Body mass index [BMI] 40.0-44.9, adult; L03.116 Cellulitis of left lower limb; N17.9 Acute kidney failure, unspecified; E66.01 Morbid (severe) obesity due to excess calories; E11.40 Type 2 diabetes mellitus with diabetic neuropathy, unspecified; M10.9 Gout, unspecified; L97.521 Non-pressure chronic ulcer of other part of left foot limited to breakdown of skin; I10 Essential (primary) hypertension; E78.5 Hyperlipidemia, unspecified; I25.2 Old myocardial infarction; D64.9 Anemia, unspecified; F17.200 Nicotine dependence, unspecified, uncomplicated; Z86.73 Personal history of transient ischemic attack (TIA), and cerebral infarction without residual deficits; B95.61 Methicillin susceptible Staphylococcus aureus infection as the cause of diseases classified elsewhere; B95.0 Streptococcus, group A, as the cause of diseases classified elsewhere
CPT/HCPCS: 36415; 80048; 80053; 80061; 82948; 83036; 83880; 85025; 85651; 86140; 87071; 87075; 87186; 87205; 93926; 99284; J0690; J1644; J1650; J2060; J2270; J2405; J2543; J3370; J7050

== ENCOUNTER 2019-12-02 16:01 | Observation (INO) | payer MEDICARE ==
[~2019-12-02] VITALS: Ht 175.3 cm; Wt 129.7 kg
[~2019-12-02 16:01] MED LIST: ALLOPURINOL100 MG PO; AMLODIPINE BESYL5 MG PO; ATORVASTATIN CA20 MG PO; GABAPENTIN300 MG PO; HYDRALAZINE HCL25 MG PO; LASIX20 MG PO; LISINOPRIL10 MG PO; PROBENECID500 MG PO; TERBINAFINE HC250 MG PO; TIZANIDINE HCL4 MG PO
--- NOTE | 2019-12-02 16:08 | NUR ---
BLOOD PRESSURE: RIGHT ARM: 223/113 LEFT ARM: 223/108
[2019-12-02] MEDS ORDERED: HYDRALAZINE HCL 20 MG/ML VIAL IV STA (16:17)
[2019-12-02 16:34] LABS: BASOPHILS % 0.4 % (0.0-1.0); EOSINOPHILS # (AUTO) 0.3 (0.0-0.4); HEMATOCRIT 39.6 % (38.2-49.6); HEMOGLOBIN 13.1 g/dL (14.0-18.0); LYMPHOCYTES # (AUTO) 1.4 (1.0-3.2); LYMPHOCYTES % 20.2 % (18.0-39.1); MEAN CORPUSCULAR HGB CONC 33.1 g/dL (31-35); MEAN CORPUSCULAR VOLUME 87.6 fL (81-99); MONOCYTES # (AUTO) 0.6 (0.2-0.8); MONOCYTES % 9.1 % (4.4-11.3); NEUTROPHILS # (AUTO) 4.6 (2.1-6.9); NEUTROPHILS % 65.7 % (38.7-80.0); PLATELET COUNT 232 x10e3/uL (140-360); RED BLOOD COUNT 4.52 x10e6/uL (4.3-5.7); RED CELL DISTRIBUTION WIDTH 14.6 % (11.7-14.4)
[2019-12-02 16:40] LABS: CLARITY,URINE CLEAR (CLEAR); COLOR,URINE YELLOW (YELLOW)
[2019-12-02 16:41] LABS: INR 0.96; LEUKOCYTE ESTERASE ,URINE NEGATIVE (NEGATIVE); NITRITE,URINE NEGATIVE (NEGATIVE); PROTEIN,URINE DIPSTICK >=300 (NEGATIVE); PROTHROMBIN TIME 13.3 seconds (11.9-14.5)
[2019-12-02 16:42] LABS: BACTERIA,URINE RARE /HPF; BILIRUBIN,URINE NEGATIVE (NEGATIVE); EPITHELIAL CELLS,URINE FEW /LPF; KETONES,URINE NEGATIVE (NEGATIVE); RBC,URINE 0-5 /HPF (0-5); URINE UROBILINOGEN 0.2 mg/dL (0.2 - 1); WBC,URINE (MAN) 0-5 /HPF (0-5)
[2019-12-02 16:49] LABS: ALBUMIN 2.5 g/dL (3.5-5.0); ALBUMIN/GLOBULIN RATIO 0.6 (0.8-2.0); ANION GAP 10.9 mmol/L (8-16); CREATININE, SERUM 2.87 mg/dL (0.72-1.25); POTASSIUM 3.9 mmol/L (3.5-5.1)
[2019-12-02 16:55] LABS: CREATINE KINASE MB 0.6 ng/mL (0-5.0)
--- NOTE | 2019-12-02 17:23 | Diagnostic Imaging Report ---
CT BRAIN WO HISTORY: 59-year-old male with headache x3 days and extreme hypertension. COMPARISON: None. TECHNIQUE: Noncontrast axial scans were obtained from skull base to the vertex. Coronal and sagittal reconstructions obtained from the axial data. One or more of the following dose reduction techniques were used: Automated exposure control, adjustment of the mA and/or kV according to patient size, and/or utilization of iterative reconstruction technique. DISCUSSION: Scalp/Skull: Convex hyperdense focus within the left frontal scalp is consistent with small scalp hematoma. Brain sulci: Appropriate for patient's age. Ventricles: Normal in size and configuration. No hydrocephalus. Extra-axial spaces: No masses or fluid collections. Parenchyma: No evidence of intracranial hemorrhage. Age-indeterminate lacunar infarct within the left dorsomedial thalamus. Encephalomalacia within the left paramedian occipital lobe is consistent with sequelae of chronic left [employer] territory infarct. Patchy hypodensities within the supratentorial white matter are nonspecific but most compatible with small vessel ischemic changes. No mass or acute large vascular territory acute infarct. Dural sinuses: No abnormal densities. Sellar/Suprasellar region: Intact. No masses. Skull base: Intact. Incidental findings: None. IMPRESSION: 1. No evidence of intracranial hemorrhage. 2. Age-indeterminate lacunar infarct within the left dorsomedial thalamus. 3. 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 Mild chronic microvascular ischemic changes. 5. Small left frontal scalp hematoma. This preliminary report was issued by Dr. Federico Catalan M.D. neuroradiology fellow at 1720 hours on 12/02/2019. I have reviewed the images and agree with findings in the preliminary report. Signed by: Dr. Adore Eldridge M.D. on 12/02/2019 7:46 PM
--- NOTE | 2019-12-02 17:48 | Diagnostic Imaging Report ---
Examination: Single AP view of the chest. COMPARISON: None. INDICATION: Shortness of breath, hypertension DISCUSSION: Lines/tubes: None. Lungs: Pulmonary venous congestion. No edema. No pneumonia. Pleura: No pleural effusion or pneumothorax. Heart and mediastinum: Cardiomegaly. Bones and soft tissues: No acute bony abnormalities. IMPRESSION: Cardiomegaly with pulmonary venous congestion Signed by: Dr. Ran Tsang M.D. on 12/02/2019 5:45 PM
[2019-12-02] MEDS ORDERED: ONDANSETRON HCL INJ 2MG/ML 2ML 2 MG/ML VIAL IV PRN (19:45)
[2019-12-02] MEDS ORDERED: HYDRALAZINE HCL 20 MG/ML VIAL IV PRN (19:45)
--- NOTE | 2019-12-02 19:48 | NUR ---
called and gave phone number to call. Aruna [phone]
--- NOTE | 2019-12-02 22:16 | NUR ---
PATIENT ARRIVED TO THE FLOOR, AOX4, VIA GURNEY, INFORMED BY ROVING MACHINE OPERATOR THAT PATIENT WAS HYPERTENSIVE PRIOR TO TRANSFER SBP >200, PRN MEDICATION GIVEN PRIOR TO TRANSFER, PATIENT S/O NAUSEA AT THIS TIME, PRN ZOFRAN GIVEN IV, NO C/O CHEST PAIN, LABS PENDING FOR 0400, ORIENTED TO STAFFD AND ENVIRONMENT, ADVISED TO CALL PRIOR TO GETTING OUT OF BED FOR SAFETY R/T DX
[2019-12-02 23:08] VITALS: BP 184/84
[2019-12-02] MEDS ORDERED: PREDNISOLONE ACE5 M1 OP (23:36)
[2019-12-02] MEDS ORDERED: DIGOXIN125 MCG PO (23:36)
[2019-12-02] MEDS ORDERED: HUMALOG100 UNIT/1 SQ (23:36)
[2019-12-02] MEDS ORDERED: BUMETANIDE1 MG PO (23:44)
[2019-12-02] MEDS ORDERED: ACETAMINOPHEN-1 EAC4 PO (23:44)
[2019-12-02] MEDS ORDERED: POTASSIUM CHLO10 ME1 PO (23:44)
[2019-12-02] MEDS ORDERED: DIOVAN160 MG PO (23:44)
[2019-12-02] MEDS ORDERED: DOXAZOSIN MESYLA2 MG PO (23:44)
--- NOTE | 2019-12-02 23:56 | NUR ---
MD LAURENT CONTACTED, CORROSION CONTROL SPECIALIST NERY COVERING, ADVISED THAT PATIENT REMAINS HYPERTENSIVE FROM ER SBP CURRENTLY 189, ADVISED OF ALL PATIENT HOME MEDICATIONS, AND NONCOMPLAINCE WITH MEDS, NORVASC 10MG PO NOW ORDERED, AND ORDERED TO START NORVASC 10MG PO DAILY, SHE ADVISED ME THAT ONLY 10MG OF NORVASC CAN BE GIVEN IN 24 HOUR TIME FRAME, NEXT DOSE SCHEDULE 24 HOURS FROM CURRENT TIME
[2019-12-03] VITALS (10 sets, daily range): BP systolic 108–189; BP diastolic 52–88
[2019-12-03] MEDS ORDERED: AMLODIPINE BESYLATE 10 MG TAB PO ONE
[2019-12-03] MEDS ORDERED: DEXTROSE 50% SYRINGE 50 ML IV PRN (00:30)
[2019-12-03 05:32] LABS: BASOPHILS % 0.3 % (0.0-1.0); EOSINOPHILS # (AUTO) 0.3 (0.0-0.4); EOSINOPHILS % 3.6 % (0.0-6.0); HEMATOCRIT 39.2 % (38.2-49.6); HEMOGLOBIN 12.8 g/dL (14.0-18.0); LYMPHOCYTES # (AUTO) 1.7 (1.0-3.2); LYMPHOCYTES % 19.8 % (18.0-39.1); MEAN CORPUSCULAR HEMOGLOBIN 28.5 pg (28-32); MEAN CORPUSCULAR HGB CONC 32.7 g/dL (31-35); MEAN CORPUSCULAR VOLUME 87.3 fL (81-99); MONOCYTES # (AUTO) 0.7 (0.2-0.8); MONOCYTES % 8.1 % (4.4-11.3); NEUTROPHILS # (AUTO) 5.9 (2.1-6.9); NEUTROPHILS % 67.7 % (38.7-80.0); PLATELET COUNT 246 x10e3/uL (140-360); RED BLOOD COUNT 4.49 x10e6/uL (4.3-5.7); RED CELL DISTRIBUTION WIDTH 14.6 % (11.7-14.4)
[2019-12-03 05:54] LABS: ALBUMIN 2.3 g/dL (3.5-5.0); ALBUMIN/GLOBULIN RATIO 0.6 (0.8-2.0); ANION GAP 10.7 mmol/L (8-16); CALCIUM 7.9 mg/dL (8.4-10.2); CHOL/HDL RATIO 9.2 (3.9-4.7); CREATININE, SERUM 2.64 mg/dL (0.72-1.25); POTASSIUM 3.7 mmol/L (3.5-5.1)
[2019-12-03 06:29] LABS: CREATINE KINASE MB 0.7 ng/mL (0-5.0)
--- NOTE | 2019-12-03 07:15 | NUR ---
BSSR GIVEN TO HAIM RN, PATIENT AWAKE ALERT, NO DISTRESS NOTED, SKIN WARM DRY, CURRENT SBP 160'S, NO CHEST PAIN, RESTING COMFORTABLY, CALL LIGHT WITHIN REACH
[2019-12-03] MEDS: INSULIN LISPRO 100 UNIT/1 ML 3ML VIAL SQ SCH ×4 (07:30→21:13)
[2019-12-03] MEDS ORDERED: NIFEDIPINE CR 30 MG TAB PO SCH (09:00)
[2019-12-03] MEDS: HYDRALAZINE HCL 25 MG TAB PO SCH ×3 (09:32→20:46)
[2019-12-03] MEDS: DOXAZOSIN MESYLATE 2 MG TAB PO SCH (09:33)
[2019-12-03] MEDS: LABETALOL HCL 100 MG TAB PO SCH ×2 (09:34→20:47)
[2019-12-03] MEDS: NIFEDIPINE CR 30 MG TAB PO SCH ×2 (09:34→21:13)
[2019-12-03] MEDS: ALLOPURINOL 100 MG TAB PO SCH (09:35)
[2019-12-03] MEDS: DIGOXIN 0.125 MG TAB PO SCH (09:35)
[2019-12-03 12:55] LABS: CREATINE KINASE MB 1.2 ng/mL (0-5.0)
[2019-12-03] MEDS: GABAPENTIN 300 MG CAP PO SCH ×2 (16:12→21:13)
--- NOTE | 2019-12-03 19:36 | NUR ---
Received bedside report from day nurse. Patient awake and resting in bed, no s/s of distress at this time. Bed locked and in low position, call light placed within reach. All safety measures in place. Will continue to monitor.
[2019-12-03] MEDS ORDERED: ATORVASTATIN 40 MG TAB PO SCH (21:00)
[2019-12-04] VITALS: BP 118/57
[2019-12-04] MEDS ORDERED: AMLODIPINE BESYLATE 10 MG TAB PO PRN
[2019-12-04] MEDS ORDERED: LABETALOL HCL100 MG PO (05:35)
[2019-12-04] MEDS ORDERED: ZOFRAN4 MG PO (05:35)
[2019-12-04] MEDS ORDERED: NIFEDIPINE ER30 M1 PO (05:35)
--- NOTE | 2019-12-04 05:42 | NUR ---
D/C summary Principal Dx: Hypertensive Emergency- ccb/BB/ MICHELL- hold aceI/ARB SEcondary Dx: CKD3 due to DM2- Hba1c/LDL 03/29HLD- statin Gout- allopurinol PAF- dig/bb Prop: scd Dispo: BP better. d/c home with nifedipine XL, labetalol and zofran stable f/u pcp 1 week d/c>35mins Ye Goldsmith MD, PhD
[2019-12-04 06:02] LABS: BASOPHILS % 0.3 % (0.0-1.0); EOSINOPHILS # (AUTO) 0.3 (0.0-0.4); EOSINOPHILS % 3.4 % (0.0-6.0); HEMATOCRIT 35.5 % (38.2-49.6); HEMOGLOBIN 11.2 g/dL (14.0-18.0); LYMPHOCYTES # (AUTO) 2.5 (1.0-3.2); LYMPHOCYTES % 29.2 % (18.0-39.1); MEAN CORPUSCULAR HEMOGLOBIN 28.3 pg (28-32); MEAN CORPUSCULAR HGB CONC 31.5 g/dL (31-35); MEAN CORPUSCULAR VOLUME 89.6 fL (81-99); MONOCYTES # (AUTO) 0.8 (0.2-0.8); MONOCYTES % 8.8 % (4.4-11.3); NEUTROPHILS % 57.7 % (38.7-80.0); PLATELET COUNT 217 x10e3/uL (140-360); RED BLOOD COUNT 3.96 x10e6/uL (4.3-5.7); RED CELL DISTRIBUTION WIDTH 14.7 % (11.7-14.4)
[2019-12-04] MEDS: GABAPENTIN 300 MG CAP PO SCH (06:18)
[2019-12-04 06:26] LABS: ANION GAP 12.7 mmol/L (8-16); CALCIUM 7.6 mg/dL (8.4-10.2); CREATININE, SERUM 3.91 mg/dL (0.72-1.25); POTASSIUM 3.7 mmol/L (3.5-5.1)
--- NOTE | 2019-12-04 07:04 | NUR ---
bedside shift report received from PM nurse. pt in stable condition. will continue to monitor.
--- NOTE | 2019-12-04 07:04 | NUR ---
Bedside report given to day nurse. Patient awake and sitting up in bed, no s/s of distress at this time. Bed locked and in low position, call light placed within reach. All safety measures in place.
[2019-12-04 07:30] VITALS: BP 112/72
[2019-12-04 07:33] VITALS: BP 118/57
[2019-12-04 08:48] VITALS: BP 135/61
[2019-12-04] MEDS: INSULIN LISPRO 100 UNIT/1 ML 3ML VIAL SQ SCH (08:53)
[2019-12-04] MEDS: HYDRALAZINE HCL 25 MG TAB PO SCH (08:55)
[2019-12-04] MEDS: DOXAZOSIN MESYLATE 2 MG TAB PO SCH (08:56)
[2019-12-04] MEDS: DIGOXIN 0.125 MG TAB PO SCH (08:57)
[2019-12-04] MEDS: NIFEDIPINE CR 30 MG TAB PO SCH (08:57)
[2019-12-04] MEDS: ALLOPURINOL 100 MG TAB PO SCH (08:58)
[2019-12-04] MEDS: LABETALOL HCL 100 MG TAB PO SCH (08:58)
--- NOTE | 2019-12-21 05:38 | NUR ---
H&P PRIMARY CARE PHYSICIAN: Dr. Tse CHIEF COMPLAINT: cough and dizziness HISTORY OF PRESENT ILLNESS: This is a 59year-old man who developed cough, dizziness, subjective fever, vomiting and SOB. No travel; no known sick contacts. Found to have Hypertensive emergency. Now states that symptoms have quickly improved; PAST MEDICAL HISTORY: CKD3 due to Diabetes mellitus, type 2, stroke in 2007 without residual weakness, myocardial infarction without stent, appendicitis, status post appendectomy, Left diabetic foot ulcer, MICHELL, Morbid obesity, HTN, HLD, Gout, DM-neuropathy, peripherla edema, DFU. PAST SURGICAL HISTORY: Appendectomy, L1-L2 back surgery. ALLERGIES: PER ELECTRONIC MEDICAL RECORD. FAMILY HISTORY/SOCIAL HISTORY: Patient is . He has 3 children. No alcohol or illicits. He smokes occasionally intermittently. MEDICATIONS: Per electronic medical record. REVIEW OF SYSTEMS: Denies any dizziness, chest pain, chills, nausea, diarrhea, blurred vision. Denies any back pain or leg weakness PHYSICAL EXAMINATION VITAL SIGNS: Have been reviewed. GENERAL: A tired-appearing man resting in bed. HEENT: Anicteric. Pupils respond to light. No oral lesions. CARDIOVASCULAR: Normal S1 and S2. LUNGS: Good breath sounds. ABDOMEN: Soft, nontender and nondistended. EXTREMITIES: no edema SKIN: Dry. PSYCHIATRIC: Flat affect. NEUROLOGIC: Alert and oriented times 3. Moving all extremities. LABS: Reviewed. MEDICATIONS: Reviewed. ASSESSMENT: 59yoM Hypertensive Emergency- ccb/BB/ CKD3 due to DM2- Hba1c/LDL 03/29 MICHELL- hold aceI/ARB HLD- statin Gout- allopurinol PAF- dig/bb Prop: scd Dispo: Ye Goldsmith MD, PhD
== END 2019-12-04 11:54 | disposition home or self-care (01) ==
LOC: ER 16:01 → ERHOLD 20:05 → MED/SURG 21:38
PROVIDERS: ADMIT Internal Medicine; ATTEND Internal Medicine
DX: I16.1 Hypertensive emergency (principal); E11.22 Type 2 diabetes mellitus with diabetic chronic kidney disease; I12.9 Hypertensive chronic kidney disease with stage 1 through stage 4 chronic kidney disease, or unspecified chronic kidney disease; N18.3 Chronic kidney disease, stage 3 (moderate); Z79.4 Long term (current) use of insulin; Z86.73 Personal history of transient ischemic attack (TIA), and cerebral infarction without residual deficits; E11.40 Type 2 diabetes mellitus with diabetic neuropathy, unspecified; M10.9 Gout, unspecified; I25.10 Atherosclerotic heart disease of native coronary artery without angina pectoris; Z95.5 Presence of coronary angioplasty implant and graft; F17.200 Nicotine dependence, unspecified, uncomplicated; N17.9 Acute kidney failure, unspecified; I48.0 Paroxysmal atrial fibrillation
CPT/HCPCS: 36415 ×3; 70450; 71045; 80048; 80053 ×2; 80061; 80162; 81001; 82550 ×2; 82553 ×2; 82948 ×2; 83036; 83735; 83880; 84484 ×2; 85025 ×3; 85610; 85730; 87086; 93005; 96372; 99284; G0378 ×3; J0360; J2405